=== PATIENT | female | born 1935 | race Caucasian/White ===

== ENCOUNTER → 2016-07-30 | Outpatient (CLI) | payer MEDICARE, OTHER ==
[~2016-07-30] MED LIST: REGADENOSON 0.4 MG/5 ML SYRINGE ONE
== END | disposition home or self-care (01) ==
LOC: CFH 12:22
PROVIDERS: ATTEND Family Medicine
DX: I08.1 Rheumatic disorders of both mitral and tricuspid valves (principal); E78.5 Hyperlipidemia, unspecified; Z87.891 Personal history of nicotine dependence
CPT/HCPCS: 78452; 93017; 93306; A9502; J2785

== ENCOUNTER 2016-10-30 15:52 | Emergency (ER) | payer MEDICARE, OTHER ==
[~2016-10-30] VITALS: Ht 157.5 cm; Wt 64.6 kg
[2016-10-30] MEDS ORDERED: ALBUTEROL/IPRATROPIUM 2.5MG/0.5MG, 3 ML ONE (16:25)
[2016-10-30] MEDS ORDERED: ALBUTEROL/IPRATROPIUM 2.5MG/0.5MG, 3 ML NPPB ONE (16:30)
[2016-10-30 16:41] LABS: BLOOD UREA NITROGEN 19 mg/dL (7-18)
[2016-10-30] MEDS ORDERED: LOVA20TA2 PO (16:46)
[2016-10-30] MEDS ORDERED: LATA2.5D3 EACHEYE (16:46)
[2016-10-30 16:47] LABS: IS PT STATUS REG ER OR PRE ER? YES
[2016-10-30] MEDS ORDERED: TIMO5DRO5 EACHEYE (16:47)
[2016-10-30 19:08] VITALS: BP 136/79
== END 2016-10-30 19:12 | disposition home or self-care (01) ==
LOC: ED 19:00
DX: J20.8 Acute bronchitis due to other specified organisms (principal); R55 Syncope and collapse; J44.9 Chronic obstructive pulmonary disease, unspecified; Z87.891 Personal history of nicotine dependence
CPT/HCPCS: 36415; 70450; 71010; 80048; 82040; 83880; 84484; 85025; 93005; 94640; 99285; J7512; J7620

== ENCOUNTER → 2017-11-07 | Outpatient (CLI) | payer MEDICARE, OTHER ==
[~2017-11-07] MED LIST changes: +GADOBUTROL 7.5 MMOL/7.5 ML PFS ONE; +LATA2.5D3 EACHEYE; +LOVA20TA2 PO; -REGADENOSON 0.4 MG/5 ML SYRINGE ONE; +TIMO5DRO5 EACHEYE
[2017-11-07 13:55] LABS: BASOPHILS # (AUTO) 0.03 x10^3/uL (0-0.1); BASOPHILS % (AUTO) 1 % (0-1); EOSINOPHILS % (AUTO) 2 % (1-7); LYMPHOCYTES # (AUTO) 1.19 x10^3/uL (1-3.4); LYMPHOCYTES % (AUTO) 19 % (22-44); MD NO; MEAN CORPUSCULAR HEMOGLOBIN 31.2 pg (27.0-34.8); MEAN CORPUSCULAR HGB CONC 34.1 g/dL (32.4-35.8); MEAN CORPUSCULAR VOLUME 91.6 fL (80-100); MEAN PLATELET VOLUME 7.6 fL (7.4-10.4); MONOCYTES # (AUTO) 0.52 x10^3/uL (0.2-0.8); MONOCYTES % (AUTO) 8 % (2-9); NEUTROPHILS % (AUTO) 71 % (42-75); PLATELET COUNT 216 x10^3/uL (130-400); RED BLOOD COUNT 4.89 x10^6/uL (3.82-5.3); RED CELL DISTRIBUTION WIDTH 14.1 % (9.6-15.2)
[2017-11-07 14:03] LABS: ALANINE AMINOTRANSFERASE 24 U/L (12-78); ANION GAP 6 mmol/L (5-15); CALCIUM 9.3 mg/dL (8.5-10.1); CHLORIDE 111 mmol/L (98-107); CREATININE 0.75 mg/dL (0.55-1.02)
[2017-11-07 14:06] LABS: ALKALINE PHOSPHATASE 76 U/L (45-117); BILIRUBIN,TOTAL 0.4 mg/dL (0.2-1.0); TOTAL PROTEIN 7.4 g/dL (6.4-8.2)
== END | disposition home or self-care (01) ==
LOC: RAD 13:00
PROVIDERS: ATTEND Family Medicine
DX: M41.9 Scoliosis, unspecified (principal); R07.81 Pleurodynia
CPT/HCPCS: 36415; 70553; 71101; 72072; 80053; 85025; A9585

== ENCOUNTER 2018-07-29 12:35 | Inpatient (IN) | payer MEDICARE, OTHER ==
[~2018-07-29] VITALS: Ht 157.5 cm; Wt 75.0 kg
[~2018-07-29 12:35] MED LIST changes: -GADOBUTROL 7.5 MMOL/7.5 ML PFS ONE
--- NOTE | 2018-07-29 13:10 | NUR ---
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
[2018-07-29] MEDS ORDERED: SODIUM CHLORIDE FLUSH 10ML SYR IVF ONE (13:30)
--- NOTE | 2018-07-29 14:00 | NUR ---
LATE ENTRY 1320: BREAK RN. PT TO ROOM FROM [facility]. CARE ASSUMED. PT REPORS "SOB FOR MONTHS, USING INHALERS, NEBULIZER, LAST FEW MONTHS FELT LIKE I WAS CATCHING FLU, ZITHROMAX, PREDNISONE, 2 ROUNDS, NOT GETTING BETTER, LIGHTHEADED, NO ENERGY, DIZZY IN MY HEAD." DENIES ANY PAIN, CP, N/V/D, DIZZINESS AT THIS TIME. CONT PULSE OX, BP, CARDIAC MONITORS IN PLACE. SINUS AJAY ON MONITOR. SIDE RAILS UPX2. CALL LIGHT IN REACH. FALL PRECAUTIONS IN PLACE. SIDE RAILS UPX2. DR. CAAL AT BEDSIDE FOR EVALUATION, AWAITING ORDERS. ASSESSMENT COMPLETED. [id number] AT BEDSIDE.
[2018-07-29 14:14] LABS: BASOPHILS # (AUTO) 0.02 x10^3/uL (0-0.1); BASOPHILS % (AUTO) 0 % (0-1); EOSINOPHILS # (AUTO) 0.39 x10^3/uL (0-0.4); EOSINOPHILS % (AUTO) 7 % (1-7); LYMPHOCYTES # (AUTO) 1.08 x10^3/uL (1-3.4); LYMPHOCYTES % (AUTO) 20 % (22-44); MD NO; MEAN CORPUSCULAR HEMOGLOBIN 31.3 pg (27.0-34.8); MEAN CORPUSCULAR HGB CONC 33.8 g/dL (32.4-35.8); MEAN CORPUSCULAR VOLUME 92.7 fL (80-100); MEAN PLATELET VOLUME 7.5 fL (7.4-10.4); MONOCYTES # (AUTO) 0.58 x10^3/uL (0.2-0.8); MONOCYTES % (AUTO) 11 % (2-9); NEUTROPHILS # (AUTO) 3.27 x10^3/uL (1.8-6.8); NEUTROPHILS % (AUTO) 61 % (42-75); PLATELET COUNT 195 x10^3/uL (130-400); RED BLOOD COUNT 4.67 x10^6/uL (3.82-5.3); RED CELL DISTRIBUTION WIDTH 15.1 % (9.6-15.2)
--- NOTE | 2018-07-29 14:15 | NUR ---
BEDSIDE REPORT AND CARE TO MAMI DURAN AT THIS TIME.
[2018-07-29 14:23] LABS: ALBUMIN 3.8 g/dL (3.4-5.0); ANION GAP 4 mmol/L (5-15); CHLORIDE 109 mmol/L (98-107); CREATININE 0.74 mg/dL (0.55-1.02)
[2018-07-29 14:25] LABS: INTERNATIONAL NORMALIZED RATIO 1.02 (0.93-1.1); PROTHROMBIN TIME 10.7 Seconds (9.6-11.5)
[2018-07-29 14:27] LABS: TROPONIN I < 0.015 ng/mL (0.000-0.045)
[2018-07-29] MEDS ORDERED: SODIUM CHLORIDE FLUSH 10ML SYR IVF PRN (15:30)
[2018-07-29] MEDS ORDERED: ONDANSETRON 2MG/ML, 2ML IVPush PRN (16:00)
[2018-07-29] MEDS ORDERED: ACETAMINOPHEN 325 MG TABLET PO PRN (16:00)
[2018-07-29] MEDS ORDERED: ONDANSETRON ODT 4 MG PO PRN (16:00)
--- NOTE | 2018-07-29 16:25 | NUR ---
Provided report to RENEE Joyner, all questions answered. Pt ready to transfer to floor from ED.
--- NOTE | 2018-07-29 16:37 | NUR ---
Pt transfered to floor from ED and left with all personal belongings.
[2018-07-29 17:05] VITALS: BP 134/90
[2018-07-29] MEDS: HEPARIN 5,000 UNITS/ML, 1ML SQ SCH (17:16)
[2018-07-29 18:37] LABS: TROPONIN I < 0.015 ng/mL (0.000-0.045)
[2018-07-29 19:18] VITALS: BP_SYST 157; BP_SYST 167; BP_DIAS 79; BP_DIAS 81
[2018-07-29] MEDS: BENZONATATE 100 MG CAPSULE PO SCH (20:34)
[2018-07-29] MEDS: LATANOPROST OPHTH 0.005%, 2.5ML EACHEYE SCH (20:34)
[2018-07-29] MEDS: LOVASTATIN 20 MG TABLET PO SCH (20:34)
[2018-07-29] MEDS ORDERED: ALBUTEROL/IPRATROPIUM 2.5MG/0.5MG, 3 ML ONE (20:45)
[2018-07-29] MEDS ORDERED: ALBUTEROL/IPRATROPIUM 2.5MG/0.5MG, 3 ML NPPB PRN (21:00)
[2018-07-30 00:28] VITALS: BP 129/74
[2018-07-30] MEDS: HEPARIN 5,000 UNITS/ML, 1ML SQ SCH ×3 (00:35→17:34)
[2018-07-30 00:48] LABS: TROPONIN I < 0.015 ng/mL (0.000-0.045)
[2018-07-30 05:38] LABS: BASOPHILS # (AUTO) 0.04 x10^3/uL (0-0.1); BASOPHILS % (AUTO) 1 % (0-1); EOSINOPHILS # (AUTO) 0.36 x10^3/uL (0-0.4); EOSINOPHILS % (AUTO) 7 % (1-7); LYMPHOCYTES # (AUTO) 1.25 x10^3/uL (1-3.4); LYMPHOCYTES % (AUTO) 25 % (22-44); MD NO; MEAN CORPUSCULAR HGB CONC 33.4 g/dL (32.4-35.8); MEAN CORPUSCULAR VOLUME 92.8 fL (80-100); MEAN PLATELET VOLUME 7.7 fL (7.4-10.4); MONOCYTES # (AUTO) 0.55 x10^3/uL (0.2-0.8); MONOCYTES % (AUTO) 11 % (2-9); NEUTROPHILS # (AUTO) 2.74 x10^3/uL (1.8-6.8); NEUTROPHILS % (AUTO) 56 % (42-75); PLATELET COUNT 188 x10^3/uL (130-400); RED BLOOD COUNT 4.63 x10^6/uL (3.82-5.3); RED CELL DISTRIBUTION WIDTH 15.1 % (9.6-15.2)
[2018-07-30 05:43] LABS: ALBUMIN 3.4 g/dL (3.4-5.0); ANION GAP 2 mmol/L (5-15); CALCIUM 8.8 mg/dL (8.5-10.1); CHLORIDE 109 mmol/L (98-107)
[2018-07-30 05:46] LABS: ALANINE AMINOTRANSFERASE 23 U/L (12-78); ALKALINE PHOSPHATASE 55 U/L (45-117); BILIRUBIN,TOTAL 0.5 mg/dL (0.2-1.0); CHOL/HDL RATIO 2.5; CHOLESTEROL, TOTAL 147 mg/dL (140-239); CREATININE 0.77 mg/dL (0.55-1.02); HDL CHOL % 39 % (28-40); HDL CHOLESTEROL (DIRECT) 58 mg/dL (40-60); LDL CHOLESTEROL,CALCULATED 76 mg/dL (54-169); LDL/HDL RATIO 1.3 (0.5-3.0); TOTAL PROTEIN 6.1 g/dL (6.4-8.2); TRIGLYCERIDES 67 mg/dL (50-200); VLDL CHOLESTEROL 13 mg/dL (0-25)
[2018-07-30] MEDS: ALBUTEROL/IPRATROPIUM 2.5MG/0.5MG, 3 ML NPPB SCH ×4 (06:35→19:23)
[2018-07-30] MEDS: ASPIRIN 325 MG TABLET EC PO SCH (06:40)
[2018-07-30 07:56] VITALS: BP 134/76
[2018-07-30] MEDS: BENZONATATE 100 MG CAPSULE PO SCH ×3 (08:08→21:41)
[2018-07-30] MEDS: TIMOLOL OPHTH 0.5%, 5ML EACHEYE SCH (08:10)
[2018-07-30] MEDS ORDERED: REGADENOSON 0.4 MG/5 ML SYRINGE ONE (08:48)
[2018-07-30 12:49] VITALS: BP 152/89
[2018-07-30] MEDS ORDERED: OMNIPAQUE 350 MG/ML, 100ML BOTTLE ONE (17:26)
[2018-07-30] MEDS: SODIUM CHLORIDE 0.9% 1,000 ML IV SCH (17:35)
[2018-07-30 20:06] VITALS: BP 120/77
[2018-07-30] MEDS: LATANOPROST OPHTH 0.005%, 2.5ML EACHEYE SCH (21:32)
[2018-07-30] MEDS: LOVASTATIN 20 MG TABLET PO SCH (21:41)
[2018-07-31] MEDS: HEPARIN 5,000 UNITS/ML, 1ML SQ SCH ×3 (01:30→17:00)
[2018-07-31 02:53] VITALS: BP 133/82
[2018-07-31] MEDS: SODIUM CHLORIDE 0.9% 1,000 ML IV SCH ×6 (03:30→22:40)
[2018-07-31 05:08] LABS: ANION GAP 2 mmol/L (5-15); CALCIUM 8.6 mg/dL (8.5-10.1); CHLORIDE 111 mmol/L (98-107)
[2018-07-31 05:11] LABS: CREATININE 0.59 mg/dL (0.55-1.02)
[2018-07-31] MEDS: ASPIRIN 325 MG TABLET EC PO SCH (06:08)
[2018-07-31] MEDS: ALBUTEROL/IPRATROPIUM 2.5MG/0.5MG, 3 ML NPPB SCH ×4 (07:40→19:46)
[2018-07-31] MEDS: TIMOLOL OPHTH 0.5%, 5ML EACHEYE SCH (09:00)
[2018-07-31] MEDS: BENZONATATE 100 MG CAPSULE PO SCH ×3 (09:14→21:59)
[2018-07-31 09:38] VITALS: BP 146/83
[2018-07-31] MEDS ORDERED: TICAGRELOR 90 MG TABLET ONE (13:59)
[2018-07-31] MEDS ORDERED: FENTANYL PF 100 MCG/2ML ONE (13:59)
[2018-07-31] MEDS ORDERED: BIVALIRUDIN 250 MG ONE (13:59)
[2018-07-31] MEDS ORDERED: HEPARIN 1,000 UNITS/ML, 10ML ONE (13:59)
[2018-07-31] MEDS ORDERED: VERAPAMIL 2.5 MG/ML, 2ML ONE (13:59)
[2018-07-31] MEDS ORDERED: MIDAZOLAM 1 MG/ML, 2ML ONE (14:00)
[2018-07-31] MEDS ORDERED: LIDOCAINE-MPF 1%, 5ML ONE (14:00)
[2018-07-31] MEDS ORDERED: ASPI81TA45 PO (15:27)
[2018-07-31] MEDS ORDERED: BENZ-17 PO (15:27)
[2018-07-31 15:30] VITALS: BP 120/69
[2018-07-31 21:21] VITALS: BP 150/76
[2018-07-31] MEDS: LATANOPROST OPHTH 0.005%, 2.5ML EACHEYE SCH (21:59)
[2018-07-31] MEDS: LOVASTATIN 20 MG TABLET PO SCH (21:59)
[2018-08-01] MEDS: HEPARIN 5,000 UNITS/ML, 1ML SQ SCH ×2 (01:30→09:15)
[2018-08-01 03:41] VITALS: BP 144/78
[2018-08-01] MEDS: SODIUM CHLORIDE 0.9% 1,000 ML IV SCH ×4 (05:00→11:29)
[2018-08-01] MEDS: ASPIRIN 325 MG TABLET EC PO SCH (06:41)
[2018-08-01 07:00] VITALS: BP 157/85
[2018-08-01] MEDS: ALBUTEROL/IPRATROPIUM 2.5MG/0.5MG, 3 ML NPPB SCH ×3 (07:06→14:35)
[2018-08-01] MEDS: TIMOLOL OPHTH 0.5%, 5ML EACHEYE SCH (09:00)
[2018-08-01] MEDS: BENZONATATE 100 MG CAPSULE PO SCH (09:39)
[2018-08-01 12:00] VITALS: BP 122/75
== END 2018-08-01 16:24 | disposition home or self-care (01) | DRG 286 ==
LOC: ED 15:10 → EDIP 15:11 → ED 15:38 → 5SO 16:37 → DCLOUNGE 08-01 16:06
PROVIDERS: ADMIT Hospitalist; ATTEND Hospitalist
PROC: 4A023N7 Measurement of Cardiac Sampling and Pressure, Left Heart, Percutaneous Approach (ICD-10-PCS; principal; 2018-07-31)
PROC: B2111ZZ Fluoroscopy of Multiple Coronary Arteries using Low Osmolar Contrast (ICD-10-PCS; 2018-07-31)
PROC: B2151ZZ Fluoroscopy of Left Heart using Low Osmolar Contrast (ICD-10-PCS; 2018-07-31)
DX: I25.10 Atherosclerotic heart disease of native coronary artery without angina pectoris (principal); J96.01 Acute respiratory failure with hypoxia; I44.7 Left bundle-branch block, unspecified; E78.5 Hyperlipidemia, unspecified; H40.9 Unspecified glaucoma; Z66 Do not resuscitate; Z96.653 Presence of artificial knee joint, bilateral; J44.9 Chronic obstructive pulmonary disease, unspecified; Z87.891 Personal history of nicotine dependence; Z87.01 Personal history of pneumonia (recurrent); Z90.710 Acquired absence of both cervix and uterus; Z82.49 Family history of ischemic heart disease and other diseases of the circulatory system; Z82.3 Family history of stroke
CPT/HCPCS: 36415; 71045; 71275; 78452; 80048; 80053; 80061; 82040; 83735; 84443; 84484; 85025; 85610; 85730; 93005; 93017; 93306; 93458; 94640; 99156; 99285; C1769; C1894; G0378; J0583; J1644; J2250; J2785; J3010; J7620; Q9967; A9502; C9898; J7030

== ENCOUNTER 2018-08-19 14:53 | Outpatient (CLI) | payer MEDICARE, OTHER ==
[~2018-08-19 14:53] MED LIST changes: +ASPI81TA45 PO; +BENZ-17 PO
== END 2018-08-19 23:59 | disposition home or self-care (01) ==
LOC: CVU 14:53
PROVIDERS: ATTEND Registered Nurse
DX: S60.211A Contusion of right wrist, initial encounter (principal); X58.XXXA Exposure to other specified factors, initial encounter; Y93.89 Activity, other specified; Y92.89 Other specified places as the place of occurrence of the external cause; Y99.8 Other external cause status
CPT/HCPCS: 93931

== ENCOUNTER → 2019-04-28 | Outpatient (CLI) | payer MEDICARE, OTHER ==
[~2019-04-28] MED LIST changes: +ALBUTEROL INH; +ALBUTEROL NEB NEB; +ATOR40TA78 PO; +METO25TA35 PO; +OXYC5TAB3 PO; +TIMOLOL EACHEYE; +TRAM50TA2 PO; +UMEC1DIS INH
[2019-04-28 13:09] LABS: BASOPHILS # (AUTO) 0.01 x10^3/uL (0-0.1); BASOPHILS % (AUTO) 0 % (0-1); EOSINOPHILS % (AUTO) 2 % (1-7); LYMPHOCYTES # (AUTO) 0.94 x10^3/uL (1-3.4); LYMPHOCYTES % (AUTO) 17 % (22-44); MD NO; MEAN CORPUSCULAR HEMOGLOBIN 30.4 pg (27.0-34.8); MEAN CORPUSCULAR HGB CONC 32.5 g/dL (32.4-35.8); MEAN CORPUSCULAR VOLUME 93.3 fL (80-100); MEAN PLATELET VOLUME 7.9 fL (7.4-10.4); MONOCYTES # (AUTO) 0.31 x10^3/uL (0.2-0.8); MONOCYTES % (AUTO) 6 % (2-9); NEUTROPHILS # (AUTO) 4.17 x10^3/uL (1.8-6.8); NEUTROPHILS % (AUTO) 75 % (42-75); PLATELET COUNT 199 x10^3/uL (130-400); RED BLOOD COUNT 4.62 x10^6/uL (3.82-5.3); RED CELL DISTRIBUTION WIDTH 14.2 % (9.6-15.2)
[2019-04-28 13:39] LABS: CHLORIDE 112 mmol/L (98-107)
[2019-04-28 13:45] LABS: ALANINE AMINOTRANSFERASE 21 U/L (12-78); ALBUMIN 3.7 g/dL (3.4-5.0); ALKALINE PHOSPHATASE 60 U/L (45-117); ANION GAP 8 mmol/L (5-15); BILIRUBIN,TOTAL 0.7 mg/dL (0.2-1.0); CHOLESTEROL, TOTAL 148 mg/dL (140-239); CREATININE 0.77 mg/dL (0.55-1.02); HDL CHOL % 33 % (28-40); HDL CHOLESTEROL (DIRECT) 49 mg/dL (40-60); LDL CHOLESTEROL,CALCULATED 80 mg/dL (54-169); LDL/HDL RATIO 1.6 (0.5-3.0); TOTAL PROTEIN 6.9 g/dL (6.4-8.2); TRIGLYCERIDES 93 mg/dL (50-200); VLDL CHOLESTEROL 19 mg/dL (0-25)
== END | disposition home or self-care (01) ==
LOC: CFH 09:05
PROVIDERS: ATTEND Family Medicine
DX: E78.5 Hyperlipidemia, unspecified (principal); I21.A1 Myocardial infarction type 2; I44.2 Atrioventricular block, complete; J44.9 Chronic obstructive pulmonary disease, unspecified; R19.7 Diarrhea, unspecified; R55 Syncope and collapse; R94.31 Abnormal electrocardiogram [ECG] [EKG]; Z72.0 Tobacco use; Z95.0 Presence of cardiac pacemaker
CPT/HCPCS: 36415; 80053; 80061; 85025

== ENCOUNTER 2019-09-07 12:14 | Outpatient (CLI) | payer MEDICARE, OTHER | END 2019-09-07 23:59 | disposition home or self-care (01) | LOC: CVU 12:14 | PROVIDERS: ATTEND Internal Medicine Cardiovascular Disease | DX: I65.23 Occlusion and stenosis of bilateral carotid arteries (principal); R42 Dizziness and giddiness; R55 Syncope and collapse | CPT/HCPCS: 93880 ==

== ENCOUNTER 2020-04-05 15:13 | Outpatient (CLI) | payer MEDICARE, OTHER ==
[~2020-04-05 15:13] MED LIST changes: -LATA2.5D3 EACHEYE; +LATA2.5D4 EACHEYE
== END 2020-04-05 23:59 | disposition home or self-care (01) ==
LOC: CFH 15:13
PROVIDERS: ATTEND Internal Medicine Cardiovascular Disease
DX: I08.1 Rheumatic disorders of both mitral and tricuspid valves (principal); I27.20 Pulmonary hypertension, unspecified
CPT/HCPCS: 93306